=== PATIENT | female | born 1990 | race Caucasian/White ===

== ENCOUNTER 2017-09-06 13:21 | Outpatient (CLI) | payer BC ==
[~2017-09-06] VITALS: Ht 160 cm; Wt 78.0 kg
[~2017-09-06 13:21] MED LIST: ACHD5005 PO; AZTH250C; NORG1TAB79 PO
[2017-09-06 13:22] VITALS: BP 124/90
[2017-09-06 13:40] VITALS: BP 130/77
[2017-09-06 13:48] LABS: BASOPHILS % (AUTO) 0 % (0-10); EOSINOPHILS # (AUTO) 0.1 10^3/uL (0.0-0.3); EOSINOPHILS % (AUTO) 1 % (0-10); HEMATOCRIT 38 % (35-52); HEMOGLOBIN 13.7 G/DL (11.5-16.0); LYMPHOCYTES # (AUTO) 1.9 X 10^3 (1.0-4.0); LYMPHOCYTES % (AUTO) 18 % (12-44); MEAN CORPUSCULAR HEMOGLOBIN 33 PG (25-34); MEAN CORPUSCULAR HGB CONC 36 G/DL (32-36); MEAN CORPUSCULAR VOLUME 92 FL (80-99); MEAN PLATELET VOLUME 10.6 FL (7.4-10.4); MONOCYTES # (AUTO) 0.4 X 10^3 (0.0-1.0); MONOCYTES % (AUTO) 3 % (0-12); NEUTROPHILS # (AUTO) 7.9 X 10^3 (1.8-7.8); NEUTROPHILS % (AUTO) 77 % (42-75); PLATELET COUNT 182 10^3/uL (130-400); WHITE BLOOD COUNT 10.2 10^3/uL (4.3-11.0)
[2017-09-06 13:55] VITALS: BP 125/79
[2017-09-06 14:08] LABS: ALANINE AMINOTRANSFERASE 12 U/L (0-55); ALBUMIN 3.4 GM/DL (3.2-4.5); ALKALINE PHOSPHATASE 130 U/L (40-136); BILIRUBIN,TOTAL 0.3 MG/DL (0.1-1.0); BUN/CREATININE RATIO 8; CALCIUM 8.6 MG/DL (8.5-10.1); CARBON DIOXIDE 19 MMOL/L (21-32); CHLORIDE 107 MMOL/L (98-107); GFR ESTIMATED > 60; GLUCOSE 161 MG/DL (70-105); POTASSIUM 3.6 MMOL/L (3.6-5.0); SODIUM 135 MMOL/L (135-145); TOTAL PROTEIN 5.7 GM/DL (6.4-8.2); URIC ACID 4.7 MG/DL (2.6-7.2)
[2017-09-06 14:10] VITALS: BP 130/85
[2017-09-06 14:14] LABS: BILIRUBIN,URINE NEGATIVE (NEGATIVE); CLARITY,URINE CLEAR; COLOR,URINE YELLOW; GLUCOSE, URINE (UA) 1+ (NEGATIVE); KETONES,URINE 1+ (NEGATIVE); LEUKOCYTE ESTERASE ,URINE 2+ (NEGATIVE); NITRITE,URINE NEGATIVE (NEGATIVE); PH,URINE 6 (5-9); PROTEIN,URINE NEGATIVE (NEGATIVE); UROBILINOGEN,URINE NORMAL (NORMAL)
[2017-09-06] MEDS ORDERED: PREN1TAB19 PO (14:21)
[2017-09-06 14:22] LABS: BACTERIA,URINE FEW /HPF; SQUAMOUS EPITHELIAL CELL,UR RARE /HPF
--- NOTE | 2017-09-07 16:05 | Physician Query-Final Dx ---
MARAH SANCHEZ 09/07/17 1605: Clinic Account Progress/Dx Physician Query: Please give diagnosis Date of Service September 06, 2017 at 13:21 LETY LOMAS MD 09/08/17 1241: Clinic Account Progress/Dx DIAGNOSIS: Diagnosis Threatened labor MARAH SANCHEZ September 07, 2017 16:05 LETY LOMAS MD September 08, 2017 12:41
== END 2017-09-06 14:40 | disposition home or self-care (01) ==
LOC: WSo 13:21 → LDRP 13:21 → WSo 14:40
PROVIDERS: ATTEND Obstetrics & Gynecology
DX: O47.03 False labor before 37 completed weeks of gestation, third trimester (principal); Z3A.36 36 weeks gestation of pregnancy
CPT/HCPCS: 36415; 80053; 81000; 82570; 83615; 84156; 84550; 85025; 87088; 99212

== ENCOUNTER → 2017-09-23 | Outpatient (CLI) | payer BC ==
[~2017-09-23] MED LIST changes: +DOCU100C37 PO; +IBUP-1780 PO; +OXYC-471 PO; +PREN1TAB19 PO
== END ==
LOC: LABNPT 08:56
PROVIDERS: ATTEND Obstetrics & Gynecology
DX: O28.8 Other abnormal findings on antenatal screening of mother (principal)
CPT/HCPCS: 82570; 84156

== ENCOUNTER 2017-09-24 09:00 | Inpatient (IN) | payer BC ==
[2017-09-24] VITALS (57 sets, daily range): BP systolic 111–164; BP diastolic 67–99
[~2017-09-24] VITALS: Ht 165.1 cm; Wt 77.6 kg
[~2017-09-24 09:00] MED LIST changes: -DOCU100C37 PO; -IBUP-1780 PO; -OXYC-471 PO
[2017-09-24] MEDS: D5 LR IV SOLUTION 1,000 ML IV SCH ×2 (09:15→16:10)
[2017-09-24] MEDS ORDERED: D5 LR IV SOLUTION 1,000 ML IV ONE ×2 (09:30→22:08)
--- OUTSIDE RECORDS SUMMARY | 2017-09-24 09:33 | XMS REPORT ---
Author Author MONI RODRIGUEZ Organization [employer] Address Unknown Phone Unavailable Care Team Providers Care Team Otr Truck Driver Name Role Phone MONI RODRIGUEZ CP Unavailable Allergies No Known Allergies Problems Problem Type Condition Code Onset Dates Condition Status Problem Cough 786.2 Active Problem Acute maxillary sinusitis 461.0 Active Problem Acute sinusitis, unspecified 461.9 Active Assessment Encounter for immunization Z23 Active Medications No Known Medications Procedures Procedure Coding System Code Date SINGLE IMMUNIZATION ADMIN CPT-4 71658 Feb 03, 2016 FLUARIX QUAD P-FREE 3 AND UP .50 2015 CPT-4 54273 Feb 03, 2016 Results No Known Results Immunizations Vaccine Administration Date FLUARIX QUAD P-FREE 3 AND UP .50 2015Feb 03, 2016 Summary Purpose [employer] Submission
--- OUTSIDE RECORDS SUMMARY | 2017-09-24 09:33 | XMS REPORT ---
Author Author MONI RODRIGUEZ Organization [employer] Address Unknown Phone Unavailable Care Team Providers Care Pbx Teacher Name Role Phone MONI RODRIGUEZ CP Unavailable Allergies No Known Allergies Problems Problem Type Condition Code Onset Dates Condition Status Problem Cough 786.2 Active Problem Acute maxillary sinusitis 461.0 Active Problem Acute sinusitis, unspecified 461.9 Active Assessment Encounter for immunization Z23 Active Medications No Known Medications Procedures Procedure Coding System Code Date SINGLE IMMUNIZATION ADMIN CPT-4 42197 Feb 18, 2015 TDAP (BOOSTRIX) CPT-4 96929 Feb 18, 2015 Results No Known Results Immunizations Vaccine Administration Date TDAP (BOOSTRIX) Feb 18, 2015 Summary Purpose [employer] Submission
--- OUTSIDE RECORDS SUMMARY | 2017-09-24 09:33 | XMS REPORT ---
Author Author MONI RODRIGUEZ Organization [employer] Address Unknown Phone Unavailable Care Team Providers Care Instruction Librarian Name Role Phone MONI RODRIGUEZ CP Unavailable Allergies No Known Allergies Problems Problem Type Condition Code Onset Dates Condition Status Problem Cough 786.2 Active Problem Acute maxillary sinusitis 461.0 Active Problem Acute sinusitis, unspecified 461.9 Active Assessment Encounter for immunization Z23 Active Medications No Known Medications Procedures Procedure Coding System Code Date SINGLE IMMUNIZATION ADMIN CPT-4 19740 Feb 15, 2015 FLUARIX QUAD (3 & UP)-GSK-2014 CPT-4 70952 Feb 15, 2015 Results No Known Results Immunizations Vaccine Administration Date FLUARIX QUAD (3 & UP)-GSK-2014Feb 15, 2015 Summary Purpose [employer] Submission
[2017-09-24] MEDS ORDERED: OXYTOCIN/NORMAL SALINE 500 ML IV SCH (09:55)
[2017-09-24 10:05] LABS: BASOPHILS % (AUTO) 0 % (0-10); EOSINOPHILS # (AUTO) 0.1 10^3/uL (0.0-0.3); EOSINOPHILS % (AUTO) 1 % (0-10); HEMATOCRIT 38 % (35-52); HEMOGLOBIN 14.3 G/DL (11.5-16.0); LYMPHOCYTES # (AUTO) 1.8 X 10^3 (1.0-4.0); LYMPHOCYTES % (AUTO) 21 % (12-44); MEAN CORPUSCULAR HEMOGLOBIN 34 PG (25-34); MEAN CORPUSCULAR HGB CONC 37 G/DL (32-36); MEAN CORPUSCULAR VOLUME 91 FL (80-99); MEAN PLATELET VOLUME 10.5 FL (7.4-10.4); MONOCYTES # (AUTO) 0.4 X 10^3 (0.0-1.0); MONOCYTES % (AUTO) 5 % (0-12); NEUTROPHILS # (AUTO) 6.2 X 10^3 (1.8-7.8); NEUTROPHILS % (AUTO) 73 % (42-75); PLATELET COUNT 184 10^3/uL (130-400); RED BLOOD COUNT 4.22 10^6/uL (4.35-5.85); RED CELL DISTRIBUTION WIDTH 13.1 % (10.0-14.5); WHITE BLOOD COUNT 8.5 10^3/uL (4.3-11.0)
[2017-09-24] MEDS ORDERED: CATHETER FLUSH 10 ML SYR IV SCH (14:00)
[2017-09-24] MEDS ORDERED: LACTATED RINGERS 1,000 ML IV ONE (15:25)
[2017-09-24] MEDS ORDERED: SUFENTA 0.6MCG/ML BUPIVA 0.125 100 ML ONE (15:30)
[2017-09-24] MEDS ORDERED: fentaNYL INJECTION 100 MCG/2 ML AMP ONE ×2 (15:38→21:57)
[2017-09-24] MEDS ORDERED: BUPIVACAINE 0.25% 30 ML (SENSORCAINE) VIAL ONE (15:38)
[2017-09-24] MEDS ORDERED: LACTATED RINGERS 1,000 ML IV SCH (16:13)
[2017-09-24] MEDS ORDERED: diphenhydrAMINE 50 MG/ML INJ (BENADRYL) IV PRN (16:15)
[2017-09-24] MEDS ORDERED: ONDANSETRON 4 MG/2 ML (SDV) Z0FRAN IV PRN (16:15)
[2017-09-24] MEDS ORDERED: NALOXONE 0.4 MG/ML 1 ML (NARCAN) VIAL IV PRN ×2 (16:15)
[2017-09-24] MEDS ORDERED: EPIDURAL (SUFENTA 0.6MCG/ML BUPIVA 0.125%) 100 ML BAG EPI PRN (16:15)
[2017-09-24] MEDS: METOCLOPRAMIDE INJ 10 MG/2 ML (REGLAN) IV PRN ×2 (19:25→21:59)
[2017-09-24] MEDS ORDERED: MINERAL OIL CONCENTRATE 99.9% 15 ML UDC ONE (19:46)
[2017-09-24] MEDS ORDERED: LIDOCAINE/EPI 2% 1:200,00 (XYLOCAINE) 10 ML VIAL ONE (19:46)
[2017-09-24] MEDS ORDERED: raNItidine 50 MG/2 ML INJ (ZANTAC) ONE (21:35)
[2017-09-24] MEDS ORDERED: CITRIC ACID/SOB CIT (BICITRA) 30 ML UDC ONE (21:36)
[2017-09-24] MEDS ORDERED: metroNIDAZOLE 500MG/100ML IVPB 100 ML ONE (21:53)
[2017-09-24] MEDS ORDERED: ceFAZolin 2 GM IV Premixed 50 ML ONE (21:53)
[2017-09-24] MEDS ORDERED: LIDOCAINE PF 2% 5 ML (XYLOCAINE) VIAL ONE ×2 (21:57→22:24)
[2017-09-24] MEDS ORDERED: BUPIVACAINE 0.5% 30 ML (SENSORCAINE) VIAL ONE (21:57)
[2017-09-24] MEDS ORDERED: ceFAZolin INJECTION 2,000 MG in NS (IVPB) 50 ML IV ONE (22:00)
[2017-09-24] MEDS ORDERED: MEPERIDINE (DEMEROL) INJ 100 MG/ML IM PRN (22:00)
[2017-09-24] MEDS ORDERED: metroNIDAZOLE 500MG/100ML IVPB 100 ML IV ONE (22:00)
[2017-09-24] MEDS ORDERED: TETANUS,DIPTH,PERTUSS P/F (BOOSTRIX) 0.5 ML VIAL IM ONE (22:00)
[2017-09-24] MEDS ORDERED: ONDANSETRON 4 MG/2 ML (SDV) Z0FRAN IVP PRN (22:00)
[2017-09-24] MEDS ORDERED: MEASLES,MUMPS,RUBELLA 1 EA INJ SC ONE (22:00)
[2017-09-24] MEDS ORDERED: DEXAMETHASONE 10 MG/ML (DECADRON) 1 ML VIAL ONE (22:06)
[2017-09-24] MEDS ORDERED: ONDANSETRON 4 MG/2 ML (SDV) Z0FRAN ONE (22:06)
[2017-09-24] MEDS ORDERED: KETOROLAC 30 MG/ML VIAL ONE (22:28)
[2017-09-24] MEDS: KETOROLAC 30 MG/ML VIAL IVP SCH (23:57)
--- NOTE | 2017-09-25 01:33 | OPERATIVE REPORT ---
DATE OF SERVICE: 09/24/2017 PREOPERATIVE DIAGNOSIS: Term in labor at 37 and 4/7 weeks' gestation with PIH and with failure to progress in labor. POSTOPERATIVE DIAGNOSES: Term in labor at 37 and 4/7 weeks' gestation with PIH and with failure to progress in labor with persistent OP and with contracted pelvic inlet. OPERATIVE PROCEDURE: Primary low transverse delivery of a viable male infant with Apgars of 8 and 9 at 1 and 5 minutes respectively, weight of 6 pounds 7 ounces and a cord blood pH of 7.29 with a time of 22:33. OPERATIVE DESCRIPTION: With the patient in the supine position under satisfactory epidural analgesia, the patient was prepped and draped in the usual fashion for abdominal surgery. Christopher catheter had been placed in the urinary bladder during labor that was left to dependent drainage. A Pfannenstiel incision was made through the skin with a scalpel. The patient's abdomen entered in the usual manner. Bladder retractor was placed in position, clean scalpel used to make a 4 cm hysterotomy incision transversely across the loading segment that was extended by a blunt dissection. A vigorous viable male was delivered via the uterine incision from a right ROP position of about 30 degrees. The infant was elevated out of the pelvis. Weeks forceps were applied to facilitate the delivery of the as it seemed an undue amount of fundal pressure was required to expel the baby with the Simpsons applied the delivery was accomplished quite easily. There was a nuchal cord that was easily released. The was bulb suctioned on delivery of the head again on completion of delivery. The umbilical cord was doubly clamped and cut and passed to the pediatric nurse in attendance for delivery. Cord bloods were obtained. The placenta delivered spontaneously Jean. It was normal with a 3-vessel cord. The uterus was exteriorized; the interior wiped and clean with wet a laparotomy sponge. Uterine incision was then closed with a running locking suture of 2-0 Vicryl. Hemostasis was complete. The uterus contracted nicely. The uterus was returned to abdominal cavity. All blood clot and debris removed from the abdominal cavity. Sponge and needle counts were correct and hemostasis assured. The anterior parietal peritoneum was closed with a running suture of 2-0 Vicryl. Rectus muscles were closed with that suture as well. The rectus fascia was closed with 2-0 Vicryl, subcutaneous tissue with 2-0 Vicryl and the skin was stapled. Sponge and needle counts were correct at the end of procedure. Estimated blood loss was around 350 mL. The patient tolerated the procedure well and was transferred to the recovery room in stable condition. The infant had been taken stable to the full term nursery under the care of the pediatric nurse. Job ID: [id number] DocumentID: [id number] Dictated Date: 09/24/2017 23:00:26 Vat Overhauler Date: 09/25/2017 01:32:36 Dictated By: LETY LOMAS MD MTDD
[2017-09-25] MEDS: oxyCODONE/APAP 5/325MG (PERCOCET 5) TABLET PO PRN ×4 (01:47→21:54)
[2017-09-25 03:50] VITALS: BP 119/72
[2017-09-25] MEDS: KETOROLAC 30 MG/ML VIAL IVP SCH (06:20)
--- NOTE | 2017-09-25 06:56 | Progress Note-Standard ---
Standard Progress Note Progress Notes/Assess & Plan Date Seen by Provider: September 25, 2017 Time Seen by Provider: 06:54 Progress/Assessment & Plan This patient is without complaint. She is ambulating, voiding, tolerating by mouth well, has good pain control. Patient denies chest pain, denies shortness of breath, denies nausea vomiting, denies headache. Vital Signs Date Time Temp Pulse Resp B/P (MAP) Pulse Ox O2 Delivery O2 Flow Rate FiO2 09/25/17 03:50 97.3 77 18 119/72 (88) 97 Room Air 09/25/17 00:27 Room Air 09/24/17 22:15 97.5 70 18 138/86 (103) 98 Room Air 09/24/17 22:00 75 18 136/94 (108) 99 Room Air 09/24/17 21:45 63 18 148/91 (110) 98 Room Air 09/24/17 21:30 75 18 152/91 (111) 98 Room Air 09/24/17 21:15 68 18 133/80 (97) 97 Room Air 09/24/17 21:00 68 18 133/93 (106) 97 Room Air 09/24/17 20:45 70 18 131/82 (98) 98 Room Air 09/24/17 20:30 63 18 135/90 (105) 98 Room Air 09/24/17 20:15 97.2 62 18 130/84 (99) 98 Room Air 09/24/17 20:00 60 18 125/74 (91) 95 Room Air 09/24/17 19:45 63 18 121/78 (92) 95 Room Air 09/24/17 19:30 97.9 61 18 135/78 (97) 98 Room Air 09/24/17 19:15 61 18 125/88 (100) 96 Room Air 09/24/17 18:55 66 18 120/86 (97) 98 Room Air 09/24/17 18:40 61 18 119/80 (93) 99 Room Air 09/24/17 18:25 62 18 128/82 (97) 99 Room Air 09/24/17 18:10 64 18 125/77 (93) 100 Room Air 09/24/17 17:55 66 18 124/78 (93) 98 Room Air 09/24/17 17:40 78 18 137/82 (100) 99 Room Air 09/24/17 17:25 78 18 137/82 (100) 99 Room Air 09/24/17 17:10 96.4 60 18 132/86 (101) 98 Room Air 09/24/17 16:55 62 18 132/87 (102) 99 Room Air 09/24/17 16:40 63 18 129/92 (104) 99 Room Air 09/24/17 16:25 59 18 136/82 (100) 98 Room Air 09/24/17 16:20 75 18 122/88 (99) 98 Room Air 09/24/17 16:05 82 18 125/90 (102) 98 Room Air 09/24/17 16:00 67 18 127/86 (100) 100 Room Air 09/24/17 15:58 68 18 139/86 (103) 100 Room Air 09/24/17 15:56 63 18 164/99 (120) 98 Room Air 09/24/17 15:53 68 18 141/93 (109) 99 Room Air 09/24/17 15:50 68 18 141/93 (109) 99 Room Air 09/24/17 15:46 65 18 137/84 (101) 99 Room Air 09/24/17 15:43 62 18 158/83 (108) 99 Room Air 09/24/17 15:35 63 18 139/98 (112) Room Air 09/24/17 15:20 78 18 128/89 (102) Room Air 09/24/17 15:05 64 18 131/92 (105) Room Air 09/24/17 14:50 61 18 142/91 (108) Room Air 09/24/17 14:35 97.4 64 18 158/88 (111) Room Air 09/24/17 14:20 63 18 131/76 (94) Room Air 09/24/17 14:05 63 18 118/73 (88) Room Air 09/24/17 13:50 60 18 132/72 (92) Room Air 09/24/17 13:35 62 18 122/71 (88) Room Air 18 13:20 61 18 117/67 (84) Room Air 09/24/17 13:05 62 18 111/71 (84) Room Air 09/24/17 12:50 59 18 114/97 (103) Room Air 09/24/17 12:35 62 18 127/82 (97) Room Air 09/24/17 12:20 97.6 54 18 153/71 (98) Room Air 09/24/17 12:05 63 18 122/88 (99) Room Air 09/24/17 11:50 61 18 133/90 (104) Room Air 09/24/17 11:35 62 18 138/98 (111) Room Air 09/24/17 11:20 65 18 138/98 (111) Room Air 09/24/17 11:05 73 18 128/91 (103) Room Air 09/24/17 10:50 62 18 140/90 (107) Room Air 09/24/17 10:35 97.6 85 18 123/85 (98) Room Air 09/24/17 10:25 78 18 130/97 (108) Room Air 09/24/17 09:55 63 18 118/90 (99) Room Air 09/24/17 09:21 97.9 70 18 137/98 (111) Room Air I & O 09/25/17 07:00 Intake Total 150 ml Output Total 1350 ml Balance -1200 ml Vital signs are stable. Blood pressure has been somewhat labile but is normalizing. Urine output is adequate. Fundus is firm below the umbilicus and nontender. The incision is clean dry and intact. Extremities show no clubbing cyanosis. There is no Homans sign. There is fairly notable pretibial pitting edema but that is not clear portion of the patient's status Assessment and plan postoperative day number 1 status post primary delivery doing well. Plan is routine convalescence care. LETY LOMAS MD September 25, 2017 6:56 am
[2017-09-25] MEDS ORDERED: DOCU100C37 PO (06:57)
[2017-09-25] MEDS ORDERED: OXYC-471 PO (06:57)
[2017-09-25] MEDS ORDERED: IBUP-1780 PO (06:57)
--- NOTE | 2017-09-25 06:59 | Discharge Instructions ---
Discharge Instructions Discharge Medications New, Converted or Re-Newed RX: RX on Chart Patient Instructions Patient Instructions: As directed Return to The Hospital For: As directed Activity & Diet Discharge Diet: No Restrictions Activity as Tolerated: No Orders-Post D/C & Referrals Follow Up Appt: RTC on Sunday, October 01, 2017 at 930 a.m. for incision check. Call to make follow up appt. for patient in 4 weeks. Wound Care: Remove destiny, apply benzoin and steri strips. Activity Per routine post instructions. Diet as tolerated Patient may shower or tub bathe as desired. Continue home meds LETY LOMAS MD September 25, 2017 6:59 am
[2017-09-25 07:51] VITALS: BP 124/79
[2017-09-25] MEDS: DOCUSATE SODIUM 100 MG (COLACE) CAP PO SCH ×2 (08:03→21:53)
--- NOTE | 2017-09-25 11:05 | Anesthesia-Regional Post-Op ---
Regional Patient Condition Mental Status: Alert, Oriented x3 Circulation: Same as Pre-Op Headache: Absent Sensation: Full Recovery Motor Block: Absent Post Op Complications Complications None Follow Up Care/Instructions Patient Instructions None needed. Anesthesia/Patient Condition Patient is doing well, no complaints, stable vital signs, no apparent adverse anesthesia problems. No complications reported per nursing. LALO GROSS CRNA September 25, 2017 11:05
[2017-09-25] MEDS ORDERED: IBUPROFEN 800 MG (MOTRIN) TAB PO ONE (12:08)
[2017-09-25 12:17] VITALS: BP 129/79
[2017-09-25] MEDS: IBUPROFEN 800 MG (MOTRIN) TAB PO SCH ×2 (12:23→18:20)
[2017-09-25] MEDS: OXYTOCIN/NORMAL SALINE 500 ML IV SCH (12:47)
[2017-09-25 16:19] VITALS: BP 137/83
[2017-09-25 21:50] VITALS: BP 125/82
[2017-09-26] MEDS: IBUPROFEN 800 MG (MOTRIN) TAB PO SCH ×3 (00:13→12:12)
[2017-09-26 03:35] VITALS: BP 107/70
[2017-09-26] MEDS: oxyCODONE/APAP 5/325MG (PERCOCET 5) TABLET PO PRN ×2 (03:42→09:21)
--- NOTE | 2017-09-26 06:57 | Progress Note-Standard ---
Standard Progress Note Progress Notes/Assess & Plan Date Seen by Provider: September 26, 2017 Time Seen by Provider: 06:55 Progress/Assessment & Plan This patient is without complaint. She is ambulating, voiding, tolerating by mouth well, has good pain control. Patient denies chest pain, denies shortness of breath, denies nausea vomiting, denies headache. Vital Signs Date Time Temp Pulse Resp B/P (MAP) Pulse Ox O2 Delivery O2 Flow Rate FiO2 09/25/17 03:50 97.3 77 18 119/72 (88) 97 Room Air 09/25/17 00:27 Room Air 09/24/17 22:15 97.5 70 18 138/86 (103) 98 Room Air 09/24/17 22:00 75 18 136/94 (108) 99 Room Air 09/24/17 21:45 63 18 148/91 (110) 98 Room Air 09/24/17 21:30 75 18 152/91 (111) 98 Room Air 09/24/17 21:15 68 18 133/80 (97) 97 Room Air 09/24/17 21:00 68 18 133/93 (106) 97 Room Air 09/24/17 20:45 70 18 131/82 (98) 98 Room Air 09/24/17 20:30 63 18 135/90 (105) 98 Room Air 09/24/17 20:15 97.2 62 18 130/84 (99) 98 Room Air 09/24/17 20:00 60 18 125/74 (91) 95 Room Air 09/24/17 19:45 63 18 121/78 (92) 95 Room Air 09/24/17 19:30 97.9 61 18 135/78 (97) 98 Room Air 09/24/17 19:15 61 18 125/88 (100) 96 Room Air 09/24/17 18:55 66 18 120/86 (97) 98 Room Air 09/24/17 18:40 61 18 119/80 (93) 99 Room Air 09/24/17 18:25 62 18 128/82 (97) 99 Room Air 09/24/17 18:10 64 18 125/77 (93) 100 Room Air 09/24/17 17:55 66 18 124/78 (93) 98 Room Air 09/24/17 17:40 78 18 137/82 (100) 99 Room Air 09/24/17 17:25 78 18 137/82 (100) 99 Room Air 09/24/17 17:10 96.4 60 18 132/86 (101) 98 Room Air 09/24/17 16:55 62 18 132/87 (102) 99 Room Air 09/24/17 16:40 63 18 129/92 (104) 99 Room Air 09/24/17 16:25 59 18 136/82 (100) 98 Room Air 09/24/17 16:20 75 18 122/88 (99) 98 Room Air 09/24/17 16:05 82 18 125/90 (102) 98 Room Air 09/24/17 16:00 67 18 127/86 (100) 100 Room Air 09/24/17 15:58 68 18 139/86 (103) 100 Room Air 09/24/17 15:56 63 18 164/99 (120) 98 Room Air 09/24/17 15:53 68 18 141/93 (109) 99 Room Air 09/24/17 15:50 68 18 141/93 (109) 99 Room Air 09/24/17 15:46 65 18 137/84 (101) 99 Room Air 09/24/17 15:43 62 18 158/83 (108) 99 Room Air 09/24/17 15:35 63 18 139/98 (112) Room Air 09/24/17 15:20 78 18 128/89 (102) Room Air 09/24/17 15:05 64 18 131/92 (105) Room Air 09/24/17 14:50 61 18 142/91 (108) Room Air 09/24/17 14:35 97.4 64 18 158/88 (111) Room Air 09/24/17 14:20 63 18 131/76 (94) Room Air 09/24/17 14:05 63 18 118/73 (88) Room Air 09/24/17 13:50 60 18 132/72 (92) Room Air 09/24/17 13:35 62 18 122/71 (88) Room Air 18 13:20 61 18 117/67 (84) Room Air 09/24/17 13:05 62 18 111/71 (84) Room Air 09/24/17 12:50 59 18 114/97 (103) Room Air 09/24/17 12:35 62 18 127/82 (97) Room Air 09/24/17 12:20 97.6 54 18 153/71 (98) Room Air 09/24/17 12:05 63 18 122/88 (99) Room Air 09/24/17 11:50 61 18 133/90 (104) Room Air 09/24/17 11:35 62 18 138/98 (111) Room Air 09/24/17 11:20 65 18 138/98 (111) Room Air 09/24/17 11:05 73 18 128/91 (103) Room Air 09/24/17 10:50 62 18 140/90 (107) Room Air 09/24/17 10:35 97.6 85 18 123/85 (98) Room Air 09/24/17 10:25 78 18 130/97 (108) Room Air 09/24/17 09:55 63 18 118/90 (99) Room Air 09/24/17 09:21 97.9 70 18 137/98 (111) Room Air I & O 09/25/17 07:00 Intake Total 150 ml Output Total 1350 ml Balance -1200 ml Vital signs are stable. Blood pressure has been somewhat labile but is normalizing. Urine output is adequate. Fundus is firm below the umbilicus and nontender. The incision is clean dry and intact. Extremities show no clubbing cyanosis. There is no Homans sign. There is fairly notable pretibial pitting edema but that is not clear portion of the patient's status Assessment and plan postoperative day number 1 status post primary delivery doing well. Plan is routine convalescence care. September 27, 1999 8T Patient is without complaint. She is ambulating, voiding, tolerating oral intake well, has good pain control and is requesting discharge home. Vital Signs Date Time Temp Pulse Resp B/P (MAP) Pulse Ox O2 Delivery O2 Flow Rate FiO2 09/26/17 03:35 97.3 70 18 107/70 (82) 98 Room Air 09/25/17 21:50 97.9 73 18 125/82 (96) 96 Room Air 09/25/17 16:19 99.3 63 18 137/83 (101) 97 Room Air 09/25/17 12:17 98.2 58 16 129/79 (96) 96 Room Air 09/25/17 07:51 97.6 58 18 124/79 (94) 98 Room Air I & O 09/26/17 07:00 Intake Total 2900 ml Output Total 4350 ml Balance -1450 ml Vital signs are stable. Patient is afebrile. Fundus is firm below the umbilicus and nontender. The surgical incision is clean dry and intact. Extremities show no clubbing or cyanosis. There is no Homans sign. There is some pretibial pitting edema that is normal. Assessment and plan postoperative day number 2 status post primary delivery doing well. Plan is for discharge home with follow-up in clinic Final Diagnosis Term primary delivery LETY LOMAS MD September 26, 2017 6:57 am
[2017-09-26 09:18] VITALS: BP 117/81
[2017-09-26] MEDS: DOCUSATE SODIUM 100 MG (COLACE) CAP PO SCH (09:21)
--- NOTE | 2017-10-01 22:34 | History & Physical ---
History and Physical Date Seen by Provider: Oct 25, 2017 Time Seen by Provider: 11:00 27 y/o WF at 37 plus weeks with PIH and mitted for IOL. No complications except BP to date. No ROM , no bleeding, plus FM rare ctx. Allergies noted above Med PNV Past Med, Surg, Fam, Social, and OB hx oer AAR HEENT - wnl Neck - wnl Heart wnl Resp - wnl Ext - wnl VE - pending at the time of admission A/P TIUP with progressive PIH - patient admitted for IOL with pitocin. Anticipate vag delivery but prepared for if needed. Term with PIH Allergies and Home Medications Allergies Coded Allergies: NKANo Known Allergies (Verified Allergy, Unknown, 01/27/16) azithromycin (Verified Allergy, Unknown, 12/31/14) FROM [facility] promethazine (Unverified Allergy, Unknown, 12/30/14) Home Medications Docusate Sodium 100 Mg Capsule, 100 MG PO BID Prescribed by: LETY RICHARDSON on 09/25/17656 Ibuprofen 800 Mg Tablet, 800 MG PO Q6H Prescribed by: LETY RICHARDSON on 09/25/17656 Oxycodone HCl/Acetaminophen 1 Each Tablet, 1-2 TAB PO Q4H PRN for PAIN-MODERATE Prescribed by: LETY RICHARDSON on 09/25/17656 Vit/Iron Fumarate/FA 1 Each Tablet, 1 EACH PO DAILY, (Reported) Patient Home Medication List Home Medication List Reviewed: Yes Clinical Quality Measures DVT/VTE Risk/Contraindication: Risk Factor Score Per Nursin RFS Level Per Nursing on Admit: 1=Low/No VTE PPX LETY LOMAS MD Oct 01, 2017 10:34 pm
== END 2017-09-26 13:10 | disposition home or self-care (01) | DRG 766 ==
LOC: LDRP 09:00
PROVIDERS: ADMIT Obstetrics & Gynecology; ATTEND Obstetrics & Gynecology
PROC: 3E033VJ Introduction of Other Hormone into Peripheral Vein, Percutaneous Approach (ICD-10-PCS; 2017-09-24)
PROC: 10D00Z1 Extraction of Products of Conception, Low, Open Approach (ICD-10-PCS; principal; 2017-09-24 22:15)
DX: O13.3 Gestational [pregnancy-induced] hypertension without significant proteinuria, third trimester (principal); O33.2 Maternal care for disproportion due to inlet contraction of pelvis; O64.0XX0 Obstructed labor due to incomplete rotation of fetal head, not applicable or unspecified; O62.2 Other uterine inertia; O69.81X0 Labor and delivery complicated by cord around neck, without compression, not applicable or unspecified; Z3A.37 37 weeks gestation of pregnancy; Z37.0 Single live birth
CPT/HCPCS: 36415; 82570; 84156; 85025; 86850; 86900; 86901; 88307; 94664

== ENCOUNTER → 2020-06-19 | Outpatient (CLI) | payer BC ==
[~2020-06-19] MED LIST changes: +DOCU100C37 PO; +IBUP-1780 PO; +IBUP-2380 PO; +NITR100C PO; +OXYC1TAB11 PO; +PREN-102 PO
== END ==
LOC: LAB 15:02
PROVIDERS: ATTEND Obstetrics & Gynecology
DX: O02.0 Blighted ovum and nonhydatidiform mole (principal); Z3A.00 Weeks of gestation of pregnancy not specified
CPT/HCPCS: 36415; 84702

== ENCOUNTER 2020-06-21 11:42 | Day surgery (SDC) | payer BC ==
[~2020-06-21] VITALS: Ht 157.5 cm; Wt 58.6 kg
[2020-06-21] VITALS (11 sets, daily range): BP systolic 104–131; BP diastolic 56–88
[~2020-06-21 11:42] MED LIST changes: -IBUP-2380 PO; -NITR100C PO; -PREN-102 PO
[2020-06-21] MEDS ORDERED: MIDAZOLAM 2 MG/2 ML (VERSED) VIAL IV ONE (12:15)
[2020-06-21] MEDS ORDERED: ONDANSETRON 4 MG/2 ML (SDV) Z0FRAN IV ONE (12:15)
[2020-06-21] MEDS ORDERED: LACTATED RINGERS 1,000 ML IV PRN (12:15)
[2020-06-21] MEDS ORDERED: SCOPOLAMINE 1.5 MG (TRANSDERM-SCOP) PATCH TOP ONE (12:15)
[2020-06-21] MEDS ORDERED: ceFAZolin INJECTION 1,000 MG in WATER (STERILE) FOR INJECTION 10 ML IV ONE (12:15)
[2020-06-21] MEDS ORDERED: FAMOTIDINE 20MG/2ML IV (PEPCID) IV ONE (12:15)
[2020-06-21] MEDS ORDERED: proPOfol 200 MG/20 ML (DIPRIVAN) VIAL IV ONE (12:19)
[2020-06-21] MEDS ORDERED: MIDAZOLAM 2 MG/2 ML (VERSED) VIAL ONE ×2 (12:19)
[2020-06-21] MEDS ORDERED: ONDANSETRON 4 MG/2 ML (SDV) Z0FRAN ONE ×2 (12:19)
[2020-06-21] MEDS ORDERED: LIDOCAINE PF 2% 5 ML (XYLOCAINE) VIAL ONE (12:19)
[2020-06-21] MEDS ORDERED: SCOPOLAMINE 1.5 MG (TRANSDERM-SCOP) PATCH ONE (12:19)
[2020-06-21] MEDS ORDERED: fentaNYL INJECTION 100 MCG/2 ML AMP ONE (12:20)
[2020-06-21] MEDS ORDERED: FAMOTIDINE 20MG/2ML IV (PEPCID) ONE (12:21)
[2020-06-21] MEDS ORDERED: ceFAZolin INJECTION 1,000 MG ONE (12:30)
[2020-06-21] MEDS ORDERED: HYDROmorphone 2 MG/ML VIAL (DILAUDID) IV ONE (12:30)
[2020-06-21] MEDS ORDERED: ONDANSETRON 4 MG/2 ML (SDV) Z0FRAN IVP PRN ×2 (12:30→15:30)
[2020-06-21] MEDS ORDERED: morphine INJ 10 MG/ML 1ML (SYR OR VIAL) IVP ONE (12:30)
[2020-06-21] MEDS ORDERED: WATER (STERILE) FOR INJECTION 10 ML ONE (12:30)
[2020-06-21] MEDS ORDERED: PROPOFOL INJECTION 50 ML IV ONE (12:41)
[2020-06-21] MEDS ORDERED: KETOROLAC 30 MG/ML VIAL ONE (14:25)
--- NOTE | 2020-06-21 15:00 | Anesthesia-General Post-Op ---
General Patient Condition Mental Status/LOC: Same as Preop Cardiovascular: Satisfactory Nausea/Vomiting: Absent Respiratory: Satisfactory Pain: Controlled Complications: Absent Post Op Complications Complications None Follow Up Care/Instructions Patient Instructions None needed. Anesthesia/Patient Condition Patient Condition Patient is doing well, no complaints, stable vital signs, no apparent adverse anesthesia problems. MARTHA PANCHAL DO Jun 21, 2020 15:00
--- NOTE | 2020-06-21 15:20 | Discharge Inst-Surgical ---
Discharge Inst-Surgical Depart Medication/Instructions New, Converted or Re-Newed RX: RX on Chart Consults/Follow Up Patient Instructions: directed Orders & Referrals Follow Up Appt: Call to make follow up appt. for patient in 2 weeks. Activity: Rest for 24 hours, than as tolerated. Patient may use her own [id number] ibuprofen at up to 800 mg every 6 hours when necessary cramps Diet: As tolerated may shower or tub bathe as desired. No driving for 24 hours, no alcoholic beverages for 24 hours, and nothing per vagina (no tampons, douching, or intercoarse) for 2 weeks. Patient to return to the clinic as soon as possible for: Temperature greater than 101F, Severe Pain, Foul discharge from incision or vagina, Excessive Bleeding (more than a period). Activity Activity as Tolerated: No Diet Discharge Diet: No Restrictions LETY LOMAS MD Jun 21, 2020 15:20
[2020-06-21] MEDS ORDERED: KETOROLAC 30 MG/ML VIAL IVP ONE (15:30)
[2020-06-21] MEDS ORDERED: fentaNYL INJECTION 100 MCG/2 ML AMP IVP PRN (15:30)
[2020-06-21] MEDS ORDERED: D5 LR IV SOLUTION 1,000 ML IV SCH (15:30)
[2020-06-21] MEDS ORDERED: NITR100C PO ×3 (15:38→16:14)
[2020-06-21] MEDS ORDERED: IBUP-2380 PO ×2 (15:40→16:12)
[2020-06-21] MEDS: IBUPROFEN TABLET 200 MG TAB PO ONE ×2 (15:54→16:31)
[2020-06-21] MEDS ORDERED: IBUPROFEN TABLET 200 MG TAB PO ONE (16:00)
[2020-06-21] MEDS ORDERED: PREN-102 PO (16:12)
--- NOTE | 2020-06-21 20:19 | OPERATIVE REPORT ---
DATE OF SERVICE: 06/21/2020 PREOPERATIVE DIAGNOSIS: An 8-week with blighted ovum/missed . POSTOPERATIVE DIAGNOSIS: An 8-week with blighted ovum/missed . OPERATIVE PROCEDURE: D and C for missed AB. OPERATIVE DESCRIPTION: With the patient in the supine position under satisfactory general anesthesia, she was repositioned in dorsal lithotomy position in the Gasper stirrups and prepped and draped in the usual fashion for vaginal surgery. Weighted speculum placed in posterior fornix of vagina, cervix exposed and grasped anteriorly with a single tooth tenaculum. Uterus was sounded to #9 Hegar dilator. The dilation was somewhat difficult and the cervix was resistant dilation. The patient did sustain a small laceration in the anterior lip of the cervix, which we repaired later. With the cervix dilated to a #9 Hegar dilator with #9 curved suction curette was introduced and endometrial cavity curettaged with vacuum in all 4 quadrants to good uterine cry with removal of a fairly notable amount of trophoblastic and decidual appearing tissue as well as blood clot, amniotic fluid and debris. The endometrial cavity was then sharply curettaged in all 4 quadrants to good uterine cry. The curved suction curette was reintroduced and all blood clot and debris evacuated from the uterus. The curette was removed. There was minimal bleeding from the cervical os. The tenaculum was removed from the cervix. There was minimal bleeding from the small laceration on the anterior lip. This was repaired with a running locked suture of 2-0 Vicryl Rapide in the usual manner without difficulty to good hemostasis. Sponge and needle counts were correct on completion of the procedure. Estimated blood loss was around 100 mL. The patient tolerated the procedure well and was uneventfully awakened from her general anesthesia and transferred to the recovery room in stable condition with plans for discharge home PAR. Job ID: [id number] DocumentID: [id number] Dictated Date: 06/21/2020 15:38:50 Dietitian Research Date: 06/21/2020 20:19:24 Dictated By: LETY LOMAS MD
== END 2020-06-21 16:20 | disposition home or self-care (01) ==
LOC: SDC 11:42
PROVIDERS: ATTEND Obstetrics & Gynecology
DX: O02.1 Missed abortion (principal); Z88.1 Allergy status to other antibiotic agents; Z88.5 Allergy status to narcotic agent; Z88.8 Allergy status to other drugs, medicaments and biological substances; U07.1 COVID-19
CPT/HCPCS: 59820; 87081; U0002; 87635

== ENCOUNTER 2021-05-09 05:39 | Outpatient (CLI) | payer BC ==
[~2021-05-09] VITALS: Ht 157.5 cm; Wt 69.5 kg
[~2021-05-09 05:39] MED LIST changes: +IBUP-2380 PO; +NITR100C PO; +PREN-102 PO
[2021-05-13] MEDS ORDERED: ACHD5005 PO (13:51)
[2021-05-13] MEDS ORDERED: IBUP-844 PO (13:51)
[2021-05-13] MEDS ORDERED: DOCU100C37 PO (13:51)
== END 2021-05-09 15:38 | disposition home or self-care (01) ==
LOC: PREOP 05:39
PROVIDERS: ATTEND Obstetrics & Gynecology
DX: Z01.818 Encounter for other preprocedural examination (principal)

== ENCOUNTER 2021-05-13 09:11 | Inpatient (IN) | payer BC ==
[2021-05-13] VITALS (10 sets, daily range): BP systolic 84–165; BP diastolic 68–98
[~2021-05-13] VITALS: Ht 157.5 cm; Wt 69.2 kg
[2021-05-13] MEDS ORDERED: ceFAZolin 2 GM IV Premixed 50 ML IV ONE (12:45)
[2021-05-13] MEDS ORDERED: FAMOTIDINE 20MG/2ML IV (PEPCID) IV ONE (13:00)
[2021-05-13] MEDS ORDERED: LACTATED RINGERS 1,000 ML IV PRN ×2 (13:00)
[2021-05-13] MEDS ORDERED: CATHETER FLUSH 10 ML SYR IV PRN (13:00)
[2021-05-13] MEDS ORDERED: METOCLOPRAMIDE INJ 10 MG/2 ML (REGLAN) IV ONE (13:00)
[2021-05-13] MEDS ORDERED: CITRIC ACID/SOB CIT (BICITRA) 30 ML UDC PO ONE (13:00)
[2021-05-13] MEDS ORDERED: ceFAZolin 2 GM IV Premixed 50 ML ONE (13:02)
[2021-05-13 13:31] LABS: BASOPHILS # (AUTO) 0.1 10^3/uL (0.0-0.1); BASOPHILS % (AUTO) 1 % (0-10); EOSINOPHILS # (AUTO) 0.1 10^3/uL (0.0-0.3); EOSINOPHILS % (AUTO) 1 % (0-10); HEMATOCRIT 42 % (35-52); HEMOGLOBIN 15.2 g/dL (11.5-16.0); LYMPHOCYTES # (AUTO) 2.3 10^3/uL (1.0-4.0); LYMPHOCYTES % (AUTO) 25 % (12-44); MEAN CORPUSCULAR HEMOGLOBIN 33 pg (25-34); MEAN CORPUSCULAR HGB CONC 36 g/dL (32-36); MEAN CORPUSCULAR VOLUME 93 fL (80-99); MEAN PLATELET VOLUME 11.2 fL (9.0-12.2); MONOCYTES # (AUTO) 0.4 10^3/uL (0.0-1.0); MONOCYTES % (AUTO) 5 % (0-12); NEUTROPHILS # (AUTO) 6.3 10^3/uL (1.8-7.8); NEUTROPHILS % (AUTO) 69 % (42-75); PLATELET COUNT 170 10^3/uL (130-400); WHITE BLOOD COUNT 9.1 10^3/uL (4.3-11.0)
[2021-05-13] MEDS ORDERED: fentaNYL INJ 100 MCG/2 ML AMP ONE (13:36)
--- NOTE | 2021-05-13 13:45 | History & Physical-OB ---
OB - Chief Complaint & HPI Date/Time Date of Admission: Date of Admission: May 13, 2021 at 12:37 Date seen by a Provider: May 13, 2021 Time Seen by a Provider: 13:00 Chief Complaint/History OB-Reason for Admission/Chief: Onset of Labor Hx : 3 Hx Para: 1 Expected Date of Delivery: May 29, 2021 Gestational Age in Weeks: 37 Gestational Age in Days: 5 Indication for : desires repeat Admission Nurse Assessment Rev: Yes History of Labs A pos Antibody neg RI RPR NR HBsAg NR HIV NR GC neg GBS neg Allergies and Home Medications Allergies Coded Allergies: meperidine (Verified Allergy, Mild, 06/21/20) azithromycin (Verified Allergy, Unknown, 12/31/14) FROM [facility] promethazine (Unverified Allergy, Unknown, 12/30/14) Patient Home Medication List Home Medication List Reviewed: Yes Vit/Iron Fumarate/FA ( Vitamins Tablet) 1 Each Tablet, 1 EACH PO DAILY, (Reported) Entered as Reported by: NOREEN WONG on 09/06/17 1421 Last Action: Reviewed Discontinued Medications Ibuprofen (Ibuprofen) 800 Mg Tablet, 800 MG PO Q6H Discontinued Reason: No Longer Taking Prescribed by: LETY RICHARDSON on 09/25/17 0657 Nitrofurantoin Macrocrystal (Nitrofurantoin) 100 Mg Capsule, 100 MG PO BID, (Reported) Discontinued Reason: No Longer Taking Entered as Reported by: CARL ARAMBULA on 06/21/20 1614 OB - History Hx of Present Care: Yes Ultrasounds: Normal mid trimester US Obstetrical Complications: Gestational Diabetes Medical Complications: None Obstetrical History Hx : 3 Hx Para: 1 Hx Total # of Abortions (Spona: 1 Delivery History Hx Blood Disorders: No Adverse Rxn to Tranfusion: No Patient Past Medical History n/a Social History/Family History Alcohol Use: Denies Use Recreational Drug Use: No Immunizations Influenza Vaccine Up-to-Date: Yes; Up-to-Date First/Initial COVID19 Vaccine: YES Second COVID19 Vaccination: YES Hepatitis A: No Hepatitis B: No Tetanus Booster (TDap): Less than 5yrs OB - Admission Exam Physical Exam Vitals: Vital Signs 05/13/21 09:26 Temp 36.4 Pulse 67 Resp 18 Pulse Ox 100 O2 Delivery Room Air HEENT: NCAT Heart: Rhythm Normal Lungs: Clear Abdomen: Gravid Extremities: Normal Reflexes: Normal Cervical Dilatation: 2cm Effacement: 75% Station: -1 Membranes: Intact Heart Rate: 130's Accelerations: Accelerations Present Decelerations: No Decelerations Short Term Variability: Present Custodial Variability: Average (6-25) Contractions on Admission: < 5 Minutes Apart Intensity: Firm Labs Laboratory Tests Test 05/13/21 13:20 Range/Units White Blood Count 9.1 4.3-11.0 10^3/uL Red Blood Count 4.55 3.80-5.11 10^6/uL Hemoglobin 15.2 11.5-16.0 g/dL Hematocrit 42 35-52 % Mean Corpuscular Volume 93 80-99 fL Mean Corpuscular Hemoglobin 33 25-34 pg Mean Corpuscular Hemoglobin Concent 36 32-36 g/dL Red Cell Distribution Width 12.8 10.0-14.5 % Platelet Count 170 130-400 10^3/uL Mean Platelet Volume 11.2 9.0-12.2 fL Immature Granulocyte % (Auto) 1 % Neutrophils (%) (Auto) 69 42-75 % Lymphocytes (%) (Auto) 25 12-44 % Monocytes (%) (Auto) 5 0-12 % Eosinophils (%) (Auto) 1 0-10 % Basophils (%) (Auto) 1 0-10 % Neutrophils # (Auto) 6.3 1.8-7.8 10^3/uL Lymphocytes # (Auto) 2.3 1.0-4.0 10^3/uL Monocytes # (Auto) 0.4 0.0-1.0 10^3/uL Eosinophils # (Auto) 0.1 0.0-0.3 10^3/uL Basophils # (Auto) 0.1 0.0-0.1 10^3/uL Immature Granulocyte # (Auto) 0.1 0.0-0.1 10^3/uL OB - Assessment/Plan/Diagnosis Assessment Assessment: section Admission Dx 30 yo @ 37.5 Active labor Previous GDMA2- on metformin GBS neg Admission Status: Inpatient Order (span 2 midnights) Reason for Inpatient Admission: Repeat at 37.5 Plan Plan: Section POLY VERONICA DO May 13, 2021 13:45
--- NOTE | 2021-05-13 13:50 | Discharge Inst-Women's Service ---
Discharge Inst-Women's Serv Depart Medication/Instructions New, Converted or Re-Newed RX: Transmitted to Pharmacy Final Diagnosis POD 2 RLTCS Problems Reviewed?: Yes Consults/Follow Up Additional Follow Up: Yes Orders/Referrals Dr. Montiel in 7-10 days and in 6 weeks Activity Activity: Activity as Tolerated Driving Instructions: No Driving for 1 Week NO SMOKING: NO SMOKING Nothing Inside Vagina: No Douching, No Simpson, No Tampons Diet Discharge Diet: No Restrictions Symptoms to Report to : Bleeding Excessive, Pain Increased, Fever Over 101 Degrees F, Vaginal Bleeding Increase, Questions/Concerns For Any Problems or Questions: Contact Your Physician Skin/Wound Care Infection Signs and Symptoms: Increased Redness, Foul Odor of Wound, Increased Drainage, Skin Itchy or Has a Rash, Increased Swelling, Temperature Above 101 F Operative Area Clean and Dry: Keep Incision Clean/Dry Stitches/[place]/Dermabond: Dermabond, Care of Stitches Bathing Instructions: POLY Elias DO May 13, 2021 13:50
[2021-05-13] MEDS ORDERED: IBUP-844 PO (13:51)
[2021-05-13] MEDS ORDERED: DOCU100C37 PO (13:51)
[2021-05-13] MEDS ORDERED: ACHD5005 PO (13:51)
[2021-05-13] MEDS ORDERED: TETANUS,DIPTH,PERTUSS P/F (BOOSTRIX) 0.5 ML VIAL IM SCH (14:00)
[2021-05-13] MEDS ORDERED: OXYTOCIN PRE-MIX DRIP 500 ML IV SCH (14:00)
[2021-05-13] MEDS ORDERED: NALOXONE 0.4 MG/ML 1 ML (NARCAN) VIAL IV PRN (14:00)
[2021-05-13] MEDS ORDERED: ONDANSETRON 4 MG/2 ML (SDV) Z0FRAN IVP PRN (14:00)
[2021-05-13] MEDS ORDERED: MEASLES,MUMPS,RUBELLA 1 EA INJ SC SCH (14:00)
[2021-05-13] MEDS ORDERED: BUPIVACAINE 0.5% 30 ML (SENSORCAINE) VIAL ONE (14:15)
[2021-05-13] MEDS ORDERED: OXYTOCIN PRE-MIX DRIP 1,000 ML IV ONE (14:34)
[2021-05-13] MEDS ORDERED: KETOROLAC 30 MG/ML VIAL ONE (15:01)
[2021-05-13] MEDS: KETOROLAC 30 MG/ML VIAL IV SCH ×3 (15:04→20:32)
[2021-05-13] MEDS: HYDROcodone/APAP 5 MG/325 MG (LORTAB) TAB PO PRN (18:46)
[2021-05-13] MEDS: CATHETER FLUSH 10 ML SYR IV SCH ×2 (19:39→22:00)
[2021-05-13] MEDS ORDERED: HYDROmorphone 2 MG/ML VIAL (DILAUDID) ONE (20:29)
[2021-05-13] MEDS ORDERED: HYDROmorphone 2 MG/ML VIAL (DILAUDID) IV PRN (20:30)
[2021-05-13] MEDS: DOCUSATE SODIUM 100 MG (COLACE) CAP PO SCH (20:32)
[2021-05-13] MEDS ORDERED: METOCLOPRAMIDE INJ 10 MG/2 ML (REGLAN) ONE (22:55)
[2021-05-13] MEDS ORDERED: PROMETHAZINE INJ 25 MG/ML (PHENERGAN) AMP IVP PRN (23:00)
[2021-05-13] MEDS ORDERED: METOCLOPRAMIDE INJ 10 MG/2 ML (REGLAN) IVP PRN (23:00)
--- NOTE | 2021-05-13 23:39 | OPERATIVE REPORT ---
DATE OF SERVICE: PREOPERATIVE DIAGNOSES: 1. A 30-year-old G2, P1 at 37 weeks and 5 days gestation. 2. Previous section. 3. Active labor. 4. GBS negative. POSTOPERTIVE DIGNOSES: 1. A 30-year-old G2, P1 at 37 weeks and 5 days gestation. 2. Previous section. 3. Active labor. 4. GBS negative. 5. Post nuchal cord x1. PROCEDURE: Repeat low transverse section. SURGEON: Eloy Montiel DO TIMBER KILLER: Yen Mosley DNP necessary for manipulation and retraction throughout the procedure. ANESTHESIA: Spinal. ESTIMATED BLOOD LOSS: 500 mL. URINE OUTPUT: 25 mL. FLUIDS: 1700 mL of lactated Ringer's solution. FINDINGS: A live female weighing 7 pounds 7 ounces, Apgars of 8 and 9. Grossly normal appearing uterus, bilateral fallopian tubes and ovaries. SPECIMEN SENT: Placenta. INDICATIONS FOR PROCEDURE: This 30-year-old female is a patient who had sought care in our office. She was initially with Dr. Luna and the third trimester of her care was taken over by myself where it was complicated by gestational diabetes. She was to be monitored for this with both surveillance and blood sugar logs. She was planned for at 38 weeks on ; however, she presented this morning in active labor. She had already been reviewed with the risk of repeat and agreed to proceed with this delivery option. Risks of the procedure were discussed with the patient in detail including risk of bleeding, infection, damage to surrounding structures including, but not limited to bladder, bowel, ureter, kidneys, need for reoperation, postoperative complications that may occur, risk from anesthesia and even . After everything was discussed with the patient in detail, consent was obtained in the preoperative area, the patient was taken to the operating room. OPERATIVE REPORT IN DETAIL: Once in the operating room, spinal analgesia was found to be adequate. She was placed in the supine position with leftward tilt, prepped and draped in normal sterile fashion. Timeout was performed, anesthesia was tested. I then make a Pfannenstiel skin incision through the previously existing scar using a knife and carried down to underlying fascia using Bovie cautery. The fascial incision extended laterally using Bovie cautery. Superior aspect of fascial incision was then grasped with Eleno clamps, tented up and dissected off the underlying rectus muscles. The inferior aspect of fascial incision was then grasped with Eleno clamps, tented up and dissected off the underlying rectus muscles. Rectus muscles were then dissected down the midline using sharp dissection with Fermin scissors, which exposed the peritoneum, which I entered bluntly and extended using blunt traction. An Myles ring retractor was placed in the peritoneal incision, which offers excellent lateral sidewall retraction. I identified the lower uterine segment, which was found to be thinned out and make a low transverse incision to the vesicouterine peritoneum and bluntly dissected off the lower uterine segment, creating a bladder flap. I then proceeded with my myotomy until membranes were visualized, at which point I extended the uterine incision laterally and superiorly using bandage scissors. Amniotomy was performed in the process of doing this, clear fluid was noted. The was found in vertex presentation. Under fundal pressure, the 's head was elevated up the incision where the nares and oropharynx were bulb suctioned and nuchal cord was reduced x1. Anterior and posterior shoulders were delivered. was then brought to the operative field with cord doubly clamped and cut and infant was handed off to waiting nurses in attendance. Cord blood was collected, 3-vessel cord with intact placenta was delivered spontaneously thereafter. IV Pitocin was initiated to facilitate uterine contraction. Uterine fundus confirmed by manual massage. The uterus was then exteriorized and then cleared of all endometrial clots and debris. I then proceeded with closing the uterine incision using 0 Vicryl suture in running locked fashion. Second layer of imbricating 0 Monocryl was placed. Excellent hemostasis was noted after doing this. I then placed the uterus back in the pelvis and copiously irrigated the pelvis using normal saline. Once again active bleeding noted from any of my dissection planes. I placed Interceed antiadhesive over my low transverse incision. I removed the Myles ring retractor. I then proceeded with closing the peritoneum using 3-0 Vicryl suture in a running fashion. The rectus muscles were reapproximated using 3-0 Vicryl suture in interrupted fashion. The fascia was reapproximated using 0 Vicryl suture in a running fashion. The subcutaneous tissue was reapproximated using 3-0 plain interrupted subcutaneous stitch and skin reapproximated using 4-0 Monocryl running subcuticular. Dermabond was applied to incision and sterile dressing with adhesive white tape. The patient tolerated the procedure well and was taken to the recovery area in stable condition. Lap and sponge counts were correct at the end of the procedure. Instrument count was correct as well. Two grams of Ancef given preoperatively for infection prophylaxis. Job ID: [id number] DocumentID: [id number] Dictated Date: 05/13/2021 14:36:05 Testboard Operator Date: 05/13/2021 23:38:40 Dictated By: ELOY MONTIEL DO
[2021-05-14 00:24] VITALS: BP 128/83
[2021-05-14] MEDS: HYDROcodone/APAP 5 MG/325 MG (LORTAB) TAB PO PRN ×3 (00:24→18:38)
[2021-05-14 03:38] VITALS: BP 127/83
[2021-05-14] MEDS: KETOROLAC 30 MG/ML VIAL IV SCH ×2 (03:38→09:14)
[2021-05-14] MEDS: CATHETER FLUSH 10 ML SYR IV SCH (03:39)
[2021-05-14 06:25] LABS: BASOPHILS # (AUTO) 0.1 10^3/uL (0.0-0.1); BASOPHILS % (AUTO) 1 % (0-10); EOSINOPHILS # (AUTO) 0.1 10^3/uL (0.0-0.3); EOSINOPHILS % (AUTO) 1 % (0-10); HEMATOCRIT 37 % (35-52); HEMOGLOBIN 13.6 g/dL (11.5-16.0); LYMPHOCYTES % (AUTO) 16 % (12-44); MEAN CORPUSCULAR HEMOGLOBIN 34 pg (25-34); MEAN CORPUSCULAR HGB CONC 37 g/dL (32-36); MEAN CORPUSCULAR VOLUME 94 fL (80-99); MEAN PLATELET VOLUME 11.4 fL (9.0-12.2); MONOCYTES # (AUTO) 0.6 10^3/uL (0.0-1.0); MONOCYTES % (AUTO) 5 % (0-12); NEUTROPHILS # (AUTO) 9.8 10^3/uL (1.8-7.8); NEUTROPHILS % (AUTO) 78 % (42-75); PLATELET COUNT 140 10^3/uL (130-400); WHITE BLOOD COUNT 12.7 10^3/uL (4.3-11.0)
[2021-05-14 08:38] VITALS: BP 135/91
--- NOTE | 2021-05-14 08:38 | Postpartum Progress Note ---
Note Note Day # 1 Subjective: Patient is without complaints. Ambulating, voiding. Tolerating a regular diet without nausea or vomiting. Normal lochia. Pain is well controlled with oral pain medications. Objective: Physical Exam: General - Alert and oriented, no apparent distress Abdomen - Soft, appropriately tender to palpation, non-distended, fundus firm at umbilicus Extremities - no edema, negative Tiffanie's bilaterally Incision- c/d/i Assessment: POD 1 RLTCS Plan: Routine care. Encourage breast feeding. Encourage ambulation. Ferrous sulfate supplementation. Plan for discharge tomorrow Vitals - Labs Vital Signs - I&O Vital Signs Date Time Temp Pulse Resp B/P (MAP) Pulse Ox O2 Delivery O2 Flow Rate FiO2 05/14/21 03:38 36.8 62 18 127/83 (98) 98 Room Air 05/14/21 00:24 36.3 60 18 128/83 (98) 97 Room Air 05/13/21 20:32 36.6 53 18 155/75 (101) 100 Room Air 05/13/21 16:12 36.2 72 18 141/79 (99) 100 Room Air 05/13/21 15:40 36.5 16 136/89 (105) 98 05/13/21 15:40 Room Air 05/13/21 15:30 Room Air 05/13/21 15:30 16 84/69 (74) 99 05/13/21 15:20 16 119/98 (105) 99 05/13/21 15:15 Room Air 05/13/21 15:10 16 165/86 (112) 98 05/13/21 15:00 16 124/81 (95) 98 05/13/21 15:00 Room Air 05/13/21 14:50 16 127/76 (93) 98 05/13/21 14:45 36.5 16 85/68 (74) 99 05/13/21 14:45 Room Air 05/13/21 09:26 36.4 67 18 100 Room Air I & O 05/14/21 07:00 Intake Total 2700 ml Output Total 900 ml Balance 1800 ml Labs Laboratory Tests 05/13/21 13:20: White Blood Count 9.1, Red Blood Count 4.55, Hemoglobin 15.2, Hematocrit 42, Mean Corpuscular Volume 93, Mean Corpuscular Hemoglobin 33, Mean Corpuscular Hemoglobin Concent 36, Red Cell Distribution Width 12.8, Platelet Count 170, Mean Platelet Volume 11.2, Immature Granulocyte % (Auto) 1, Neutrophils (%) (Auto) 69, Lymphocytes (%) (Auto) 25, Monocytes (%) (Auto) 5, Eosinophils (%) (Auto) 1, Basophils (%) (Auto) 1, Neutrophils # (Auto) 6.3, Lymphocytes # (Auto) 2.3, Monocytes # (Auto) 0.4, Eosinophils # (Auto) 0.1, Basophils # (Auto) 0.1, Immature Granulocyte # (Auto) 0.1 05/14/21 05:17: White Blood Count 12.7H, Red Blood Count 3.98, Hemoglobin 13.6, Hematocrit 37, Mean Corpuscular Volume 94, Mean Corpuscular Hemoglobin 34, Mean Corpuscular Hemoglobin Concent 37H, Red Cell Distribution Width 12.9, Platelet Count 140, Mean Platelet Volume 11.4, Immature Granulocyte % (Auto) 1, Neutrophils (%) (Auto) 78H, Lymphocytes (%) (Auto) 16, Monocytes (%) (Auto) 5, Eosinophils (%) (Auto) 1, Basophils (%) (Auto) 1, Neutrophils # (Auto) 9.8H, Lymphocytes # (Auto) 2.0, Monocytes # (Auto) 0.6, Eosinophils # (Auto) 0.1, Basophils # (Auto) 0.1, Immature Granulocyte # (Auto) 0.1 POLY VERONICA DO May 14, 2021 08:38
[2021-05-14] MEDS: DOCUSATE SODIUM 100 MG (COLACE) CAP PO SCH ×2 (09:13→20:49)
[2021-05-14 12:30] VITALS: BP 132/83
--- NOTE | 2021-05-14 14:04 | Anesthesia-Regional Post-Op ---
Regional Patient Condition Mental Status: Alert, Oriented x3 Circulation: Same as Pre-Op Headache: Absent Sensation: Full Recovery Motor Block: Absent Post Op Complications Complications None Follow Up Care/Instructions Patient Instructions None needed. Anesthesia/Patient Condition Patient is doing well, no complaints, stable vital signs, no apparent adverse anesthesia problems. No complications reported per nursing. TRAVIS VILLEGAS CRNA May 14, 2021 14:04
[2021-05-14] MEDS ORDERED: IBUPROFEN 600 MG (MOTRIN) TAB PO ONE (15:23)
[2021-05-14] MEDS: IBUPROFEN 600 MG (MOTRIN) TAB PO SCH ×2 (15:25→20:50)
[2021-05-14 18:36] VITALS: BP 130/72
[2021-05-14 20:50] VITALS: BP 147/91
[2021-05-15] MEDS: HYDROcodone/APAP 5 MG/325 MG (LORTAB) TAB PO PRN ×2 (00:03→07:35)
[2021-05-15 03:00] VITALS: BP 139/86
[2021-05-15] MEDS: IBUPROFEN 600 MG (MOTRIN) TAB PO SCH ×2 (04:01→10:02)
--- NOTE | 2021-05-15 08:11 | Postpartum Progress Note ---
Note Note Day # 2 Subjective: Patient is without complaints. Ambulating, voiding. Tolerating a regular diet without nausea or vomiting. Normal lochia. Pain is well controlled with oral pain medications. Objective: Physical Exam: General - Alert and oriented, no apparent distress Abdomen - Soft, appropriately tender to palpation, non-distended, fundus firm at umbilicus Extremities - no edema, negative Tiffanie's bilaterally Incision- c/d/i Assessment: POD 2 RLTCS Plan: Routine care. Encourage breast feeding. Encourage ambulation. Ferrous sulfate supplementation. Plan for discharge today Vitals - Labs Vital Signs - I&O Vital Signs Date Time Temp Pulse Resp B/P (MAP) Pulse Ox O2 Delivery O2 Flow Rate FiO2 05/15/21 03:00 36.6 50 18 139/86 (103) Room Air 05/14/21 20:50 36.4 61 18 147/91 (109) 98 Room Air 05/14/21 18:36 36.6 53 18 130/72 (91) 98 Room Air 05/14/21 12:30 36.7 63 18 132/83 (99) 99 Room Air 05/14/21 08:38 36.4 60 18 135/91 (106) 100 Room Air I & O 05/15/21 07:00 Intake Total 2500 ml Output Total 1650 ml Balance 850 ml POLY VERONICA DO May 15, 2021 08:11
[2021-05-15] MEDS: DOCUSATE SODIUM 100 MG (COLACE) CAP PO SCH (08:23)
[2021-05-15 08:24] VITALS: BP 144/86
== END 2021-05-15 10:40 | disposition home or self-care (01) | DRG 788 ==
LOC: WSo 09:11 → LDRP 09:12 → WSo 12:37 → WS 15:55
PROVIDERS: ADMIT Obstetrics & Gynecology; ATTEND Obstetrics & Gynecology
PROC: 10D00Z1 Extraction of Products of Conception, Low, Open Approach (ICD-10-PCS; principal; 2021-05-13 13:41)
DX: O34.211 Maternal care for low transverse scar from previous cesarean delivery (principal); O24.425 Gestational diabetes mellitus in childbirth, controlled by oral hypoglycemic drugs; Z3A.37 37 weeks gestation of pregnancy; Z37.0 Single live birth; O69.81X0 Labor and delivery complicated by cord around neck, without compression, not applicable or unspecified
CPT/HCPCS: 36415; 85025; 86850; 86900; 86901; 99212

== ENCOUNTER 2021-06-19 05:37 | Outpatient (CLI) | payer BC ==
[~2021-06-19 05:37] MED LIST changes: +IBUP-844 PO
== END 2021-06-19 12:23 | disposition home or self-care (01) ==
LOC: PREOP 05:37
PROVIDERS: ATTEND Surgery
DX: Z01.818 Encounter for other preprocedural examination (principal)

== ENCOUNTER 2021-06-26 11:40 | Day surgery (SDC) | payer BC ==
--- NOTE | 2021-06-19 07:19 | HISTORY AND PHYSICAL ---
DATE OF SERVICE: Date of admission will be 06/26/2021. ATTENDING PRIMARY CARE PHYSICIAN: Eloy Montiel DO HISTORY OF PRESENT ILLNESS: The patient is a 30-year-old female referred over to us for right groin pain. She is currently approximately 5 weeks and status post section. She states that around 25 weeks' gestation, she developed a significant pain in the right inguinal region and was examined and found to have a bulge within this region. She states that after the section, she shortly did develop recurrent pain and swelling and was seen by her day trader and examined and found to have a hernia. She states that she is otherwise doing well and tolerating a regular diet and having normal bowel movements; however, the rate limiting factor at this time is pain. Upon examination, she has a right inguinal incarcerated hernia. PAST MEDICAL HISTORY: None. PAST SURGICAL HISTORY: Laparoscopic cholecystectomy 12/2015 and sections 08/2017 and 05/2021. ALLERGIES: AZITHROMYCIN, PHENERGAN. MEDICATIONS: None. SOCIAL HISTORY: Negative smoke, negative alcohol. FAMILY HISTORY: Noncontributory. VITAL SIGNS: Blood pressure 120/65. Current weight 130 pounds. REVIEW OF SYSTEMS: Well-nourished female currently in no acute distress. She is not experiencing any shortness of breath or difficulty breathing. No chest pain, palpitations, diaphoresis. No nausea, vomiting. No diarrhea or constipation. No red blood per rectum. No dark tarry stools. No fever, chills, no recent inadvertent weight loss. All other review of systems negative. PHYSICAL EXAMINATION: CHEST: Clear. Good breath sounds bilaterally. HEART: Regular, no murmurs. EXTREMITIES: No lower extremity edema, negative Homans sign. HEENT: No scleral icterus. NECK: No cervical lymphadenopathy. ABDOMEN: Soft. There is a palpable lesion in the right inguinal region, which is tender to palpation and likely consistent with a right indirect inguinal hernia. Her previous section scar has healed well. SKIN: Warm and dry. ASSESSMENT AND PLAN: A 30-year-old female with an incarcerated right inguinal hernia. The natural history of hernias were explained to the patient as well as the risks and benefits of surgery and she is in full understanding of this and would like to proceed with a laparoscopic right inguinal hernia repair with mesh, which we will schedule. Job ID: [id number] DocumentID: [id number] Dictated Date: 06/17/2021 15:27:39 Ocean Fishing Guide Date: 06/17/2021 15:40:57 Dictated By: KARIN FAULKNER MD
[2021-06-26] VITALS (11 sets, daily range): BP systolic 120–146; BP diastolic 78–100
[~2021-06-26] VITALS: Ht 160 cm; Wt 69.2 kg
[2021-06-26] MEDS ORDERED: HYDR-3817 PO (11:49)
--- NOTE | 2021-06-26 11:50 | Discharge Inst-Surgical ---
D/C Lap Instructions-KIDO Reconcile Patient Problems Problems Reviewed?: Yes New, Converted, or Re-Newed RX: RX on Chart Follow Up Appt in 2 weeks Activity as tolerated No driving for 24 hours No driving while on pain medications Incentive Spirometry use every 2 hours while awake Regular Diet Symptoms to Report: Fever over 101 degree F, Nausea/Vomiting Infection Signs and Symptoms to report: Increased redness, Foul odor of wound, Increased drainage Bathing instructions: May shower Operative Area Clean/Dry; Keep incision clean/dry If any problems/questions: Contact your physician or go to Emergency Room DELANEY DEGROOT APRN Jun 26, 2021 11:50
--- NOTE | 2021-06-26 11:51 | Progress Note-Pre Operative ---
Pre-Operative Progress Note H&P Reviewed The H&P was reviewed, patient examined and no changes noted. Date Seen by Provider: Jun 26, 2021 Time Seen by Provider: 11:50 Date H&P Reviewed: Jun 26, 2021 Time H&P Reviewed: 11:45 Pre-Operative Diagnosis: Incarcerated right inguinal hernia DELANEY DEGROOT APRN Jun 26, 2021 11:51
[2021-06-26] MEDS ORDERED: morphine INJ 10 MG/ML 1ML (SYR OR VIAL) IVP PRN (12:00)
[2021-06-26] MEDS ORDERED: ACETAMINOPHEN 325 MG TABLET PO PRN (12:00)
[2021-06-26] MEDS ORDERED: HYDROcodone/APAP 5 MG/325 MG (LORTAB) TAB PO ONE (12:00)
[2021-06-26] MEDS ORDERED: ONDANSETRON 4 MG/2 ML (SDV) Z0FRAN IVP PRN ×2 (12:00→15:00)
[2021-06-26] MEDS ORDERED: ceFAZolin INJECTION 1,000 MG VIAL IV ONE (12:15)
[2021-06-26] MEDS ORDERED: LIDOCAINE/EPI 1%-1:200,000 (XYLOCAINE) 30 ML VIAL ONE (12:21)
[2021-06-26] MEDS: LACTATED RINGERS 1,000 ML IV PRN ×2 (12:34→15:10)
[2021-06-26] MEDS ORDERED: ceFAZolin INJECTION 1,000 MG ONE (13:13)
[2021-06-26] MEDS ORDERED: ROCURONIUM 10 MG/ML 5 ML SYRINGE IV ONE (13:13)
[2021-06-26] MEDS ORDERED: fentaNYL INJ 100 MCG/2 ML AMP ONE (13:13)
[2021-06-26] MEDS ORDERED: LIDOCAINE PF 2% 5 ML (XYLOCAINE) VIAL ONE (13:13)
[2021-06-26] MEDS ORDERED: MIDAZOLAM 2 MG/2 ML (VERSED) VIAL ONE (13:13)
[2021-06-26] MEDS ORDERED: ONDANSETRON 4 MG/2 ML (SDV) Z0FRAN ONE (13:13)
[2021-06-26] MEDS ORDERED: proPOfol 200 MG/20 ML (DIPRIVAN) VIAL IV ONE (13:13)
[2021-06-26] MEDS ORDERED: GLYCOPYRROLATE 0.2 MG/ML (ROBINUL) 2 ML VIAL ONE (14:37)
[2021-06-26] MEDS ORDERED: NEOSTIGMINE 3 MG/3 ML VIAL ONE (14:37)
--- NOTE | 2021-06-26 14:41 | Progress Note-Post Operative ---
Post-Operative Progess Note Surgeon (s)/Aluminum Molder (s) Surgeon KARIN FAULKNER MD Aluminum Molder: stephen rodriguez OPEN HEARTH DOOR LINER Pre-Operative Diagnosis Incarcerated right inguinal hernia Post-Operative Diagnosis reducible right direct and indirect ing hernia Procedure & Operative Findings Date of Procedure 06/26/21 Procedure Performed/Findings laparoscopic right inguinal hernia repair with mesh. Anesthesia Type get Estimated Blood Loss Estimated blood loss (mL): minimal Specimens/Packing Specimens Removed none KARIN FAULKNER MD Jun 26, 2021 14:41
[2021-06-26] MEDS ORDERED: SEVOFLURANE (ULTANE) 15 ML INHAL SOLN ONE (14:45)
[2021-06-26] MEDS ORDERED: HYDROmorphone 2 MG/ML VIAL (DILAUDID) IV ONE (15:00)
[2021-06-26] MEDS ORDERED: morphine INJ 10 MG/ML 1ML (SYR OR VIAL) IVP ONE (15:00)
--- NOTE | 2021-06-26 15:12 | OPERATIVE REPORT ---
DATE OF SERVICE: 06/26/2021 ATTENDING SCRAP PREPARER: [facility]. PREOPERATIVE DIAGNOSIS: Symptomatic right inguinal hernia. POSTOPERATIVE DIAGNOSIS: Symptomatic reducible right direct and indirect inguinal hernia. PROCEDURE: Laparoscopic right inguinal hernia repair with mesh. SURGEON: Karin Faulkner MD RN BARIATRIC: Zack Cowart APRN ANESTHESIA: General endotracheal. ESTIMATED BLOOD LOSS: Minimal. FINDINGS: Same as postoperative diagnoses. DISPOSITION: The patient tolerated the procedure well. INDICATIONS: The patient is a 30-year-old female who developed pain and swelling in the right inguinal region. She is approximately 7 weeks and a section. She reports that after the , she has had continued pain in the right inguinal region, especially upon palpation and also a palpable bulge on an intermittent basis. She was examined in the office and found to have significant tenderness in the right inguinal region inferior to the previous section incision. There was no incisional hernia detected. This was more consistent with a right inguinal hernia. DESCRIPTION OF PROCEDURE: The patient was brought to the operating room, laid supine on the table. After adequate IV pain and sedative medications and general endotracheal intubation, the abdomen was prepped and draped in standard surgical fashion. A 1% lidocaine with epinephrine was then used to anesthetize overlying skin in the supraumbilical rim and a crescent shaped skin incision made using a 15 blade. A sharp clamp was used to retract the abdominal wall anteriorly and Veress needle inserted with a low opening pressure of 0 mmHg. The abdomen was insufflated to 15 mmHg pressure. Veress needle removed and a 10 mm port was placed followed by a 10 mm 45-degree angle laparoscope visualizing the peritoneal cavity. A four-quadrant abdominal exploration was performed. There was early detectable right direct and indirect inguinal hernia components developing there was no left inguinal hernia identified. There was no incisional hernia identified. Under direct visualization, we then proceeded to place bilateral 5 mm ports after the skin and peritoneal lining were anesthetized using 0.5% Marcaine with epinephrine and a skin incision made using a 15 blade. The peritoneal lining was then opened laterally towards the conjoined tendon and inguinal ligament using the Sonicision. We then proceeded medially until Tesfaye's ligament was reached. We then proceeded with inferior dissection encompassing both of the direct and indirect hernia sac components. Good hemostasis was observed. A medium size 3DMax polypropylene mesh was then placed into the defect and tacked to Tesfaye's ligament medially with absorbable tacks and to the inguinal ligament laterally. The peritoneal lining was then placed over the mesh and a few absorbable tacks placed to hold this into place with visualization of good hemostasis. The 10 mm port site fascia and peritoneum were then closed under direct visualization using a Jared-Kimberlee device as well as 0 Vicryl suture. The abdomen was desufflated and remaining ports removed. All skin incisions were closed using 4-0 Monocryl running subcuticular sutures. Wounds were then cleaned and covered with Dermabond. The patient tolerated the procedure well. We will start IV normal pain medication as well as a clear liquid diet. Once she is tolerating clears, has good pain control with oral pain medications, ambulating well, we will discharge her home where she will be instructed to do no heavy lifting or exertion for the next two weeks. Job ID: [id number] DocumentID: [id number] Dictated Date: 06/26/2021 14:48:19 Global Marketing Specialist Date: 06/26/2021 15:11:23 Dictated By: KARIN FAULKNER MD
--- NOTE | 2021-06-26 17:01 | Anesthesia-General Post-Op ---
General Patient Condition Mental Status/LOC: Same as Preop Cardiovascular: Satisfactory Nausea/Vomiting: Absent Respiratory: Satisfactory Pain: Controlled Complications: Absent Post Op Complications Complications None Follow Up Care/Instructions Patient Instructions None needed. Anesthesia/Patient Condition Patient Condition Patient is doing well, no complaints, stable vital signs, no apparent adverse anesthesia problems. No complications reported per nursing. TRAVIS VILLEGAS CRNA Jun 26, 2021 17:01
== END 2021-06-26 17:29 ==
LOC: SDC 11:40
PROVIDERS: ATTEND Surgery
DX: K40.30 Unilateral inguinal hernia, with obstruction, without gangrene, not specified as recurrent (principal); Z90.49 Acquired absence of other specified parts of digestive tract
CPT/HCPCS: 49650; 84703; 94664; C1781

== ENCOUNTER → 2023-03-10 | Outpatient (CLI) | payer BC ==
[~2023-03-10] MED LIST changes: +HYDR-3817 PO
--- NOTE | 2023-03-10 18:39 | Diagnostic Imaging Report ---
PROCEDURE: Pelvic comp/transvaginal sonogram. TECHNIQUE: Complete transabdominal and transvaginal pelvic ultrasound was performed. In addition, limited pelvic Doppler was performed. INDICATION: Abnormal uterine bleeding. Uterus is retroverted measuring 7.3 x 4.1 x 6.0 cm. Endometrium is 6 cm in thickness. No definite myometrial mass is identified. Right ovary measures 2.2 x 1.5 x 1.3 cm, left ovary measures 2.6 x 1.2 x 1.47 cm. Both ovaries contain small follicles. There is blood flow to both ovaries. No adnexal mass is identified. There is a small amount of free pelvic fluid. IMPRESSION: Essentially unremarkable transabdominal and transvaginal pelvic ultrasound with limited pelvic Doppler. Dictated on workstation # [id number]
== END ==
LOC: RAD 14:40
PROVIDERS: ATTEND Obstetrics & Gynecology
DX: N93.9 Abnormal uterine and vaginal bleeding, unspecified (principal)
CPT/HCPCS: 76830; 76856